=== PATIENT | male | born 1985 | race Caucasian/White ===

== ENCOUNTER 2024-10-21 23:27 | Emergency (ER) | payer BC, SELFPAY ==
[2024-10-21 23:28] VITALS: BP 117/62; PULSE 82; RESP 16; TEMP 36.6; O2SAT 94
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
[2024-10-21 23:32] VITALS: PULSE 73; RESP 22; O2SAT 94
[2024-10-21 23:34] VITALS: BP 121/68; PULSE 72; PULSE 73; RESP 15; O2SAT 99
[2024-10-21 23:40] VITALS: PULSE 84; RESP 19
[2024-10-21 23:46] VITALS: BP 117/77; PULSE 75; PULSE 76; RESP 14
[2024-10-21 23:48] LABS: HCT 44.8 % (40.0-50.0); HGB 14.9 g/dL (13.5-17.5); MCH 30.2 pg (27.0-33.0); MCHC 33.3 % (32.0-36.0); MCV 91 fL (80-95); MPV 9.8 fL (8.0-11.0); Platelet Count 272 10^3/uL (130-400); RBC 4.94 10^6/uL (4.36-5.78); RDW 12.1 % (11.8-14.1); RDW-SD 40.4 fL; WBC 11.32 10^3/uL (4.4-10.8)
[2024-10-21] MEDS: levETIRAcetam 2,000 MG in Normal Saline 100 ML 400 MG IVPB (23:49)
[2024-10-21 23:50] VITALS: PULSE 72; RESP 19
[2024-10-21 23:58] LABS: Anion Gap 9.6 mmol/L (3-11); BUN 13 mg/dL (7-18); CO2 26.4 mmol/L (21.0-32.0); CREATININE 1.2 mg/dL (0.70-1.30); Calcium 8.8 mg/dL (8.5-10.1); Chloride 104 mmol/L (98-107); Estimated GFR 79.88 (mL/min/1.73m2); Glucose 129 mg/dL (74-106); Magnesium 2.1 mg/dL (1.8-2.4); Potassium 4.4 mmol/L (3.5-5.1); Sodium 140 mmol/L (136-145)
[2024-10-22] VITALS (13 sets, daily range): BP systolic 119–121; BP diastolic 76–77; PULSE 64–81; RESP 12–23; TEMP 36.4; O2SAT 95–98
== END 2024-10-22 01:34 | disposition home or self-care (01) ==
LOC: ER 10-22 01:47
PROVIDERS: Emergency Provider Emergency Medicine; PCP Nurse Practitioner Family
DX: R56.9 Unspecified convulsions (principal)
CPT/HCPCS: 80048; 85027; 96365; 99284; 83735; J1953